=== PATIENT | female | born 1975 | race Two or more races ===

== ENCOUNTER 2018-08-28 18:25 | Emergency (ER) | payer MEDICAID, OTHER ==
[~2018-08-28] VITALS: Ht 154.9 cm; Wt 76.2 kg
[2018-08-28 18:36] VITALS: BP 123/81
[2018-08-28] MEDS ORDERED: cefTRIAXone SOD 1,000 MG VL IM ONE (20:45)
[2018-08-28] MEDS ORDERED: ONDANSETRON ODT 4 MG TAB PO ONE (20:45)
[2018-08-28] MEDS ORDERED: AMOXICILLIN/CLAVUL 875 MG TAB PO ONE (20:45)
[2018-08-28] MEDS ORDERED: MEPERIDINE HCL (50 MG/ML) 1 ML VIAL IM ONE (20:45)
[2018-08-28] MEDS ORDERED: TETANUS-DIPTH-ACEL PERTUSSIS 0.5ML SYRG IM ONE (21:00)
[2018-08-28] MEDS ORDERED: LIDOCAINE W/ EPINEPHRINE 2% INJ 20ML VIAL IJ ONE (22:15)
== END 2018-08-28 23:02 | disposition home or self-care (01) ==
LOC: ER 18:28
DX: S81.812A Laceration without foreign body, left lower leg, initial encounter (principal); S81.811A Laceration without foreign body, right lower leg, initial encounter; S81.832A Puncture wound without foreign body, left lower leg, initial encounter; S81.831A Puncture wound without foreign body, right lower leg, initial encounter; S31.823A Puncture wound without foreign body of left buttock, initial encounter; S31.813A Puncture wound without foreign body of right buttock, initial encounter; S71.132A Puncture wound without foreign body, left thigh, initial encounter; S71.131A Puncture wound without foreign body, right thigh, initial encounter; W54.0XXA Bitten by dog, initial encounter; Y93.89 Activity, other specified; Y99.8 Other external cause status; Y92.89 Other specified places as the place of occurrence of the external cause
CPT/HCPCS: 12004; 73502; 73552; 73590; 90471; 90715; 96372; 99283; J0696; J2175; Q0162

== ENCOUNTER 2018-08-29 21:54 | Emergency (ER) | payer MEDICAID ==
[~2018-08-29] VITALS: Ht 157.5 cm; Wt 74.8 kg
[2018-08-29 22:00] VITALS: BP 122/53
[2018-08-30] MEDS ORDERED: cefTRIAXone SOD 1,000 MG VL IM ONE (01:00)
[2018-08-30] MEDS ORDERED: BACLOFEN 10 MG TAB PO ONE (01:45)
[2018-08-30] MEDS ORDERED: HYDROcodone-ACET 10/325MG TAB PO ONE (01:45)
== END 2018-08-30 02:20 | disposition home or self-care (01) ==
LOC: ER 22:00
DX: S81.852D Open bite, left lower leg, subsequent encounter (principal); Z88.5 Allergy status to narcotic agent; Z48.01 Encounter for change or removal of surgical wound dressing; W54.0XXD Bitten by dog, subsequent encounter
CPT/HCPCS: 96372; 99283; J0696

== ENCOUNTER 2020-02-29 15:33 | Inpatient (IN) | payer MEDICAID, OTHER ==
[~2020-02-29] VITALS: Ht 160 cm; Wt 78.4 kg
[2020-02-29 16:51] LABS: Basophils # (auto) 0 10 ^3/uL (0-0.2); Basophils % (auto) 0.4 % (0.0-2.0); Eosinophils # (auto) 0 10 ^3/uL (0-0.8); Hematocrit 43.7 % (36.0-46.0); Hemoglobin 15.1 g/dL (12.2-16.2); Lymphocytes # (auto) 0.9 10 ^3/uL (0.4-5.4); Lymphocytes % (auto) 12.1 % (10.0-50.0); Mean Corpuscular Hemoglobin 32.8 pg (28.0-32.0); Mean Corpuscular Hgb Conc. 34.6 g/dL (32.0-36.0); Mean Corpuscular Volume 94.9 fL (80.0-100.0); Monocytes # (auto) 0.5 10 ^3/uL (0-1.3); Monocytes % (auto) 6.5 % (0.0-12.0); Nucleated Red Blood Cells % 0.2 %; Platelet Count (auto) 222 10^3/uL (140-450); Red Blood Cells 4.61 10^6/uL (4.0-5.20); Red Cell Distribution Width 13.4 % (11.8-14.3); White Blood Cell 7.4 10^3/uL (4.4-10.8)
[2020-02-29] MEDS ORDERED: ACETAMINOPHEN 325 MG TAB PO ONE (17:00)
[2020-02-29] MEDS ORDERED: LORazepam 0.5 MG TAB PO ONE (17:00)
[2020-02-29 17:07] LABS: Calcium 8.4 mg/dL (8.5-10.1); Potassium 3.7 mmol/L (3.5-5.1)
[2020-02-29 17:13] LABS: Albumin 2.9 g/dL (3.4-5.0); BUN/Creatinine Ratio 7.7; Bilirubin, Total 0.2 mg/dL (0.2-1.0); Total Protein 7.7 g/dL (6.4-8.2)
[2020-02-29 17:38] LABS: Urine Bacteria NONE SEEN /hpf (None Seen); Urine Blood TRACE /uL (Negative); Urine Mucus FEW (None Seen); Urine Specific Gravity 1.023 (1.001-1.035); Urine WBC 3 /hpf (0 - 5)
[2020-02-29 17:39] LABS: Amylase 76 U/L (25-115); Lipase 310 U/L (73-393)
[2020-02-29 17:49] LABS: Alcohol, Urine < 3.0 mg/dL (0-10); Amphetamine Screen, Urine POSITIVE (NEGATIVE); Barbiturate Scree,Urine NEGATIVE (NEGATIVE); Benzodiazephine Screen, Urine NEGATIVE (NEGATIVE); Cannabinoid Screen, Urine POSITIVE (NEGATIVE); Cocaine Screen, Urine NEGATIVE (NEGATIVE); Phencyclidine Screen, Urine NEGATIVE (NEGATIVE)
[2020-02-29 17:56] LABS: Opiate Scree,Urine NEGATIVE (NEGATIVE)
[2020-02-29] MEDS ORDERED: SODIUM CHLORIDE 0.9% 1,000 ML IV ONE ×2 (18:00→20:00)
[2020-02-29] MEDS ORDERED: DOXYCYCLINE 100 MG TAB/CAP PO ONE (18:30)
[2020-02-29] MEDS ORDERED: ASCORBIC ACID 500 MG TAB PO ONE (18:30)
[2020-02-29] MEDS ORDERED: ZINC SULFATE 220mg CAP or TAB PO ONE (19:30)
[2020-02-29 19:53] LABS: Magnesium 2.2 mg/dL (1.6-2.6)
[2020-02-29 19:58] LABS: CRP High Sensitivity 9.69 mg/dL (< 0.3); Lactate Dehydrogenase 403 U/L (84-246)
[2020-02-29] MEDS ORDERED: cefTRIAXone 1GM/50ML D5W 50 ML IV ONE (20:00)
[2020-02-29] MEDS ORDERED: TEMAZEPAM 15 MG CAP PO PRN (21:15)
[2020-02-29] MEDS ORDERED: SODIUM CHLORIDE 0.9% 1,000 ML IV SCH (21:15)
[2020-02-29] MEDS ORDERED: NITROGLYCERIN 0.4 MG SL TAB SL PRN (21:45)
[2020-02-29] MEDS ORDERED: MORPHINE SULF INJ 2 MG/ML SYRINGE 1ML IV PRN (21:45)
[2020-02-29] MEDS: ALBUTEROL SULF HFA 90MCG INH 200DOSE IN SCH (22:00)
[2020-02-29] MEDS: FAMOTIDINE 20 MG TAB PO SCH (22:00)
--- NOTE | 2020-02-29 22:00 | NUR ---
Respiratory note: MDI HELD AT THIS TIME, COVID RESULTS PENDING. PT IN NO RESPIRATORY DISTRESS. WILL CONTINUE TO MONITOR.
[2020-02-29] MEDS ORDERED: IOHEXOL 350 MG/ML 100ML IJ ONE (22:17)
--- NOTE | 2020-02-29 23:30 | NUR ---
RECEIVED PATIENT FROM ER. NO REPORT RECEIVED. PATIENT TO HAVE CT ANGIO BUT NO IV ACCESSIBLE. UNABLE TO DETERMINE PATIENT'S LAST MEAL SPOKE WITH RADIOLOGY, WILL PLAN TO HAVE PT NPO AT MIDNIGHT AND PERFORM CT ANGIO IN AM. IV IN LEFT HAND INFILTRATED, IV REMOVED. PT FATIGUED AND ANXIOUS. EDUCATED PT ON PLAN OF CARE AND PATIENT VERBALIZED UNDERSTANDING. BED LOWERED, CALL LIGHT WITHIN REACH AND PATIENT WILL BE ROUNDED ON EVERY HOUR AND NEEDED.
[2020-03-01] VITALS (7 sets, daily range): BP systolic 101–166; BP diastolic 56–102
[2020-03-01] MEDS: ACETAMINOPHEN 325 MG TAB PO PRN ×2 (03:44→19:01)
--- NOTE | 2020-03-01 03:59 | NUR ---
HOSPITALIST PAGED REQUESTING PO BP MEDS AND CENTRAL LINE FOR PATIENT IN AM. PMH ASTHMA. PT POSITIVE FOR AMPHETAMINE USE. UNABLE TO OBTAIN IV ACCESS. PATIENT'S CURRENT VITALS HR 110-120S, BP 166/102, AND O2 SAT 99% ON 2LNC, TEMP 101.0 MEDICATED WITH TYLENOL AND COOLING MEASURES. WILL AWAIT CALL BACK OR ORDERS. Addendum: 03/01/20 at 0610 by TIN LOPEZ RN NO RESPONSE RECEIVED. VITALS STABLE AT THIS TIME. HR 106, BP 102/56, AND TEMP AT 98.1. NO IV ACCESS AVAILABLE STILL AT THIS TIME. WILL ENDORSE TO DAYSHIFT. Addendum: 03/01/20 at 0611 by TIN LOPEZ RN ORDERS OBTAINED.
[2020-03-01] MEDS: ALBUTEROL SULF HFA 90MCG INH 200DOSE IN SCH ×3 (06:55→22:24)
--- NOTE | 2020-03-01 06:55 | NUR ---
Respiratory note: NO MDI AT BEDSIDE. WAITING TO GET FROM PHARMACY
[2020-03-01 07:19] LABS: Basophils # (auto) 0 10 ^3/uL (0-0.2); Basophils % (auto) 0.1 % (0.0-2.0); Eosinophils # (auto) 0 10 ^3/uL (0-0.8); Eosinophils % (auto) 0.1 % (0.0-7.0); Hematocrit 39.9 % (36.0-46.0); Hemoglobin 13.5 g/dL (12.2-16.2); Lymphocytes # (auto) 0.7 10 ^3/uL (0.4-5.4); Lymphocytes % (auto) 9.6 % (10.0-50.0); Mean Corpuscular Hemoglobin 32.1 pg (28.0-32.0); Mean Corpuscular Hgb Conc. 33.8 g/dL (32.0-36.0); Mean Corpuscular Volume 94.9 fL (80.0-100.0); Monocytes # (auto) 0.4 10 ^3/uL (0-1.3); Monocytes % (auto) 5.7 % (0.0-12.0); Neutrophils # (auto) 6.2 10 ^3/uL (1.6-8.6); Neutrophils % (auto) 84.5 % (37.0-80.0); Nucleated Red Blood Cells % 0.2 %; Platelet Count (auto) 236 10^3/uL (140-450); White Blood Cell 7.4 10^3/uL (4.4-10.8)
[2020-03-01 07:37] LABS: Albumin 2.5 g/dL (3.4-5.0); Potassium 3.6 mmol/L (3.5-5.1)
[2020-03-01 07:41] LABS: BUN/Creatinine Ratio 13.2; Bilirubin, Total 0.3 mg/dL (0.2-1.0); Total Protein 6.5 g/dL (6.4-8.2)
--- NOTE | 2020-03-01 07:45 | NUR ---
PT DOES NOT CURRENTLY HAVE IV ACCESS. PENDING PICC LINE PLACEMENT Addendum: 03/01/20 at 0817 by MEAGAN RENTERIA RN RN Amended: Links added.
[2020-03-01] MEDS ORDERED: DOXYCYCLINE 100 MG TAB/CAP PO ONE (09:00)
[2020-03-01] MEDS: FAMOTIDINE 20 MG TAB PO SCH ×2 (09:17→22:08)
[2020-03-01] MEDS: DexAMETHasone SOD PHOS 10MG/1ML VIAL INJ IV SCH (09:17)
[2020-03-01] MEDS: ZINC SULFATE 220mg CAP or TAB PO SCH (09:18)
[2020-03-01] MEDS: ENOXAPARIN SOD 40 MG/0.4 ML SYRINGE SC SCH (09:18)
[2020-03-01] MEDS: ASCORBIC ACID 1,000 MG TAB PO SCH (09:18)
[2020-03-01] MEDS: CHOLECALCIFEROL (VITD3) 2,000 UNIT CAP PO SCH (09:18)
[2020-03-01] MEDS ORDERED: DOXYCYCLINE 100MG/250ML 250 ML IV SCH (10:00)
[2020-03-01] MEDS ORDERED: ENOXAPARIN SOD 40 MG/0.4 ML SYRINGE SC SCH (10:00)
--- NOTE | 2020-03-01 11:47 | NUR ---
Midline Placement: Patient educated on need for midline placement. All risks and benefits explained and all questions and concerns addresses prior to procedure. 18g/10 cm midline inserted via RIGHT BASILIC vein using Ultrasound. Sterile technique utilized. Blood return obtained from THE SINGLE lumen and flushed easily with NS using proper technique. Midline secured with saline lock; biodisc and occlusive dressing applied. Primary RN MEAGAN notified. Midline lot # [id number]
--- NOTE | 2020-03-01 12:05 | NUR ---
ROUNDING MD Ne ZAVALA AT BEDSIDE. ALL QUESTIONS AND CONCERNS ADDRESSED AT THIS TIME
[2020-03-01] MEDS ORDERED: IOHEXOL 350 MG/ML 100ML IJ ONE (15:09)
--- NOTE | 2020-03-01 15:27 | NUR ---
PT OFF UNIT FOR PROCEDURE
--- NOTE | 2020-03-01 15:36 | NUR ---
PT RETURNED TO UNIT AFTER PROCEDURE
[2020-03-01] MEDS ORDERED: cefTRIAXone 1GM/50ML D5W 50 ML IV ONE (19:45)
[2020-03-01] MEDS: DOXYCYCLINE 100 MG TAB/CAP PO SCH (22:09)
--- NOTE | 2020-03-01 23:19 | NUR ---
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
[2020-03-02 04:45] VITALS: BP 101/70
[2020-03-02] MEDS: ACETAMINOPHEN 325 MG TAB PO PRN (04:59)
--- NOTE | 2020-03-02 07:20 | NUR ---
END OF SHIFT NOTE ENDORSE PT CARE TO DAY SHIFT RN. PT A0X4, NO S/S OF DISTRESS OR SOB
[2020-03-02] MEDS: ALBUTEROL SULF HFA 90MCG INH 200DOSE IN SCH ×3 (07:48→22:35)
--- NOTE | 2020-03-02 07:48 | NUR ---
decreased to 2lpm,sp02 98% Addendum: 03/02/20 at 0931 by Luz Ybarra RT Amended: Links added.
[2020-03-02 08:43] VITALS: BP 114/75
[2020-03-02] MEDS: FAMOTIDINE 20 MG TAB PO SCH ×2 (09:54→21:34)
[2020-03-02] MEDS: DexAMETHasone SOD PHOS 10MG/1ML VIAL INJ IV SCH (09:54)
[2020-03-02] MEDS: ZINC SULFATE 220mg CAP or TAB PO SCH (09:54)
[2020-03-02] MEDS: cefTRIAXone 1GM/50ML D5W 50 ML IV SCH (09:54)
[2020-03-02] MEDS: DOXYCYCLINE 100 MG TAB/CAP PO SCH ×2 (09:57→21:34)
[2020-03-02] MEDS: ASCORBIC ACID 1,000 MG TAB PO SCH (09:57)
[2020-03-02] MEDS: CHOLECALCIFEROL (VITD3) 2,000 UNIT CAP PO SCH (09:58)
[2020-03-02] MEDS: ENOXAPARIN SOD 40 MG/0.4 ML SYRINGE SC SCH (09:58)
--- NOTE | 2020-03-02 11:05 | NUR ---
PAGED DR ZAVALA PATIENT REQUESTING SOMETHING FOR ANXIETY.
[2020-03-02] MEDS: ONDANSETRON HCL 4 MG/2 ML VIAL IV PRN ×2 (11:24→22:50)
[2020-03-02 12:05] VITALS: BP 108/63
[2020-03-02] MEDS: LORazepam 0.5 MG TAB PO PRN ×2 (12:30→21:34)
[2020-03-02 16:08] VITALS: BP 128/66
[2020-03-02] MEDS ORDERED: FUROSEMIDE 20 MG/2 ML VIAL IV ONE (18:15)
--- NOTE | 2020-03-02 19:30 | NUR ---
Opening Shift Note Received report from Breonna. Assumed care of patient, awake and alert. No S/S of distress/SOB or pain. Instructed on POC and to call for assist PRN, will continue to monitor for changes Q1hr and PRN.
--- NOTE | 2020-03-02 21:34 | NUR ---
Given Lorazepam po as ordered for anxiety. Will monitor
[2020-03-02 22:00] VITALS: BP 106/63
--- NOTE | 2020-03-03 | NUR ---
Patient is resting in bed with eyes closed, no distress noted.
[2020-03-03] MEDS: ONDANSETRON HCL 4 MG/2 ML VIAL IV PRN (04:50)
--- NOTE | 2020-03-03 04:50 | NUR ---
Given Zofran for nausea as ordered. Will monitor
[2020-03-03 05:00] VITALS: BP 102/74
[2020-03-03 07:52] LABS: BUN/Creatinine Ratio 19.1; Calcium 8.8 mg/dL (8.5-10.1); Potassium 3.8 mmol/L (3.5-5.1)
[2020-03-03 08:00] VITALS: BP 128/66
--- NOTE | 2020-03-03 08:00 | NUR ---
ASSESSMENT NOTE PT IS ALERT ORIENTED X4, NO DISTRESS NOTED, APPEAR ANXIOUS AND EMOTIONAL STATED I WANT TO GO HOME, EVERYONE POCKING AT ME >, PT REQUESTED HER ATIVAN, MADE AWARE TO EAT HER BREAKFAST AND PUT SOME FOOD IN HER STOMACH, ABLE TO SELF REPOSITION AND VERBALIS HER NEEDS, IN CONTACT ISOLATION DROPLET, MONITOR EACH SHIFT, CALL LIGHT WITHIN REACH
[2020-03-03 09:00] VITALS: BP 117/68
--- NOTE | 2020-03-03 09:00 | NUR ---
OXYGEN .5 L PT SAT AT 98%
[2020-03-03] MEDS: DexAMETHasone SOD PHOS 10MG/1ML VIAL INJ IV SCH (09:19)
[2020-03-03] MEDS: cefTRIAXone 1GM/50ML D5W 50 ML IV SCH (09:19)
[2020-03-03] MEDS: DOXYCYCLINE 100 MG TAB/CAP PO SCH (09:20)
[2020-03-03] MEDS: FAMOTIDINE 20 MG TAB PO SCH (09:20)
[2020-03-03] MEDS: ZINC SULFATE 220mg CAP or TAB PO SCH (09:20)
[2020-03-03] MEDS: CHOLECALCIFEROL (VITD3) 2,000 UNIT CAP PO SCH (09:21)
[2020-03-03] MEDS: ASCORBIC ACID 1,000 MG TAB PO SCH (09:21)
[2020-03-03] MEDS: ENOXAPARIN SOD 40 MG/0.4 ML SYRINGE SC SCH (09:21)
[2020-03-03] MEDS: LORazepam 0.5 MG TAB PO PRN (09:22)
[2020-03-03] MEDS ORDERED: FUROSEMIDE 20 MG/2 ML VIAL IV SCH (10:00)
[2020-03-03] MEDS ORDERED: POTASSIUM EFFERVESENT TAB 25 MEQ PO SCH (10:00)
--- NOTE | 2020-03-03 11:59 | NUR ---
Nutrition Assessment Est energy needs [id number] kcal (20-25 kcal/kg BW 78.4kg) Est protein needs 52-67g (1-1.3g/kg BW 52kg) Will reassess prn. Addendum: 03/03/20 at [address] Amended: Links added.
--- NOTE | 2020-03-03 12:20 | NUR ---
DR PETERSEN AT BED SIDE FOLLOWING UP ON PT, PT EXPRESS THAT SHE WANT TO GO HOME, DR PETERSEN REQUESTED TO MONITOR PT FOR THE NEXT 3 HOURS ON ROOM AIR, IF EVERYTHING IS OKAY, PT MAY DISCHARGE HOME
[2020-03-03] MEDS ORDERED: DEX4T PO (12:35)
[2020-03-03] MEDS ORDERED: ASCO10003 PO (12:35)
[2020-03-03] MEDS ORDERED: DOXY-286 PO (12:35)
[2020-03-03 13:00] VITALS: BP 106/69
--- NOTE | 2020-03-03 13:36 | NUR ---
VERIFY WITH PT REGARDING HER DOCTOR, PT STATED I HAVE NOT IN DOCTOR OFFICE FOR YEARS ATTEMPT TO SCHEDULE PT WITH [facility], WAS TOLD THAT [facility] ARE NOT CONTRACTED WITH [facility] TO GO TO HER DOCTOR PER HER INSURANCE PT MADE AWARE
[2020-03-03 13:53] VITALS: BP 117/68
--- NOTE | 2020-03-03 15:50 | NUR ---
ALL DISCHARGE INSTRUCTION GIVEN TO PT VERBALIE UNDERSTANDING, ENCOURAGED PT TO RECEIVER BULK SYSTEM HER NEW RX MEDS FROM [facility] AND MAKE OWN APPOINTMENT IN ONE WEEK WITH DR KATZ, PT VERBALIS UNDERSTANDING
--- NOTE | 2020-03-03 16:05 | NUR ---
Discharge instructions given as ordered. Encourage to follow up with PMD as instructed. All questions and concerns addressed. Patient verbalized understanding. Medication reconciliation form completed and copy given to patient. . IV removed with catheter intact, pressure dressing applied, . Telemetry unit returned to ICU. Patient taken to vehicle via wheelchair with all personal belongings, accompanied by staff and family member. No distress noted at time of departure.
== END 2020-03-03 16:00 | disposition home or self-care (01) | DRG 720 ==
LOC: ER 15:33 → TELE 15:34 → TELE-EAST 23:20
PROVIDERS: ADMIT Nurse Practitioner; ATTEND Internal Medicine Nephrology
DX: A41.89 Other specified sepsis (principal); U07.1 COVID-19; J96.01 Acute respiratory failure with hypoxia; J12.89 Other viral pneumonia; R65.20 Severe sepsis without septic shock; J45.909 Unspecified asthma, uncomplicated; F17.210 Nicotine dependence, cigarettes, uncomplicated; E86.0 Dehydration; F15.10 Other stimulant abuse, uncomplicated; F12.10 Cannabis abuse, uncomplicated; Z88.5 Allergy status to narcotic agent
CPT/HCPCS: 36415; 71045; 71275; 74176; 80048; 80053; 80307; 81001; 82150; 82728; 83605; 83615; 83690; 83735; 84443; 84484; 84702; 85025; 85379; 86141; 87040; 87426; 93005; 94640; G0378; J0696; J1100; J2405